=== PATIENT | female | born 1955 | race Caucasian/White ===

== ENCOUNTER 2022-05-14 06:27 | Day surgery (SDC) | payer OTHER ==
[~2022-05-14] VITALS: Ht 167.6 cm; Wt 86.2 kg
[~2022-05-14 06:27] MED LIST: AVALIDE 300-121 EACH PO; DIOVAN160 M1
[2022-05-14] MEDS ORDERED: NABUMETONE500 MG PO (08:44)
[2022-05-14] MEDS ORDERED: PERCOCET 5-3251 EACH PO (08:44)
== END 2022-05-14 12:45 | disposition home or self-care (01) ==
LOC: CIR.AMB 06:27
PROVIDERS: ATTEND Orthopaedic Surgery
DX: S83.282A Other tear of lateral meniscus, current injury, left knee, initial encounter (principal); M94.262 Chondromalacia, left knee; M65.861 Other synovitis and tenosynovitis, right lower leg; M13.862 Other specified arthritis, left knee; Z20.822 Contact with and (suspected) exposure to COVID-19; I10 Essential (primary) hypertension; E78.49 Other hyperlipidemia